=== PATIENT | male | born 1955 | race African-American/Black ===

== ENCOUNTER 2022-04-02 18:52 | Emergency (ER) | payer MEDICARE ==
[~2022-04-02] VITALS: Ht 180.3 cm; Wt 88.9 kg
[2022-04-02] MEDS ORDERED: OXYCODONE/APAP 5-325 MG TABLET PO ONE (19:30)
[2022-04-02] MEDS ORDERED: OXYCODONE/APAP 5-325 MG TABLET ONE (19:31)
[2022-04-02 19:36] LABS: HEMATOCRIT 28.3 % (36.7-47.1); MEAN CORPUSCULAR HEMOGLOBIN 28.6 uug (23.8-33.4); PLATELET COUNT (AUTO) 282 K/uL (152-348)
--- NOTE | 2022-04-02 19:40 | NUR ---
PT A/O x 4. NAD noted.
--- NOTE | 2022-04-02 19:45 | NUR ---
Observed PT walk to restroom with a steady gait.
--- NOTE | 2022-04-02 19:52 | NUR ---
Urine sample sent to the lab.
[2022-04-02 20:08] LABS: BILIRUBIN,DIRECT 0.1 mg/dL (0.0-0.2); BILIRUBIN,TOTAL 0.4 mg/dL (0.2-1.0); CREATININE 1.3 mg/dL (0.6-1.3); POTASSIUM 4.3 mmol/L (3.5-5.1); TOTAL PROTEIN, SERUM 8.5 g/dL (6.4-8.2)
[2022-04-02 20:22] LABS: *BILIRUBIN,URIN NEGATIVE (NEGATIVE); *BLOOD, URINE NEGATIVE (NEGATIVE); *CLARITY,URINE CLEAR (CLEAR); *COLOR,URINE YELLOW (YELLOW); *KETONES,URINE NEGATIVE (NEGATIVE); *UROBILINOGEN,URINE 0.2 E.U./dl (NORMAL); LEUKOCYTE ESTERASE ,URINE NEGATIVE (NEGATIVE); NITRITE, URINE NEGATIVE (NEGATIVE); PH,URINE 5.5 (5.0-8.0)
[2022-04-02 20:30] LABS: UGLUCOSE 3+ (NEGATIVE)
--- NOTE | 2022-04-02 20:30 | NUR ---
Daughter at bedside.
[2022-04-02] MEDS ORDERED: SWABABLE VALVE TRANSFER SET EA MC ONE (20:31)
[2022-04-02] MEDS ORDERED: IV NORMAL SALINE 250 ML IV ONE (20:31)
[2022-04-02] MEDS ORDERED: IOHEXOL 300MG/ML 100 ML INFUS..BTL ONE (20:31)
[2022-04-02 21:04] LABS: BACTERIA,URINE FEW /HPF (NONE SEEN); RBC,URINE 0-3 /HPF (0-3); SQUAMOUS EPITHELIAL CELL,UR FEW /HPF (NONE SEEN); WBC,URINE 0-3 /HPF (0-3)
[2022-04-02 21:05] LABS: MAGNESIUM 2.1 mg/dL (1.8-2.4)
[2022-04-02] MEDS ORDERED: BLOO-1731 MC (22:36)
[2022-04-02] MEDS ORDERED: BISA10SU61 RC (22:36)
[2022-04-02] MEDS ORDERED: BISA-79 PO (22:36)
--- NOTE | 2022-04-02 22:45 | NUR ---
Patient discharged to home in stable condition. A/O x 4. NAD noted. Ambulatory with a steady gait. Written and verbal after care instructions given. Patient verbalizes understanding of instructions. Stressed follow up or return to ER for worsening s/s.
[2022-04-02 22:48] VITALS: BP 128/69
== END 2022-04-02 22:45 | disposition home or self-care (01) ==
LOC: ER 20:07
DX: K59.00 Constipation, unspecified (principal); E11.9 Type 2 diabetes mellitus without complications; D50.9 Iron deficiency anemia, unspecified; C61 Malignant neoplasm of prostate; C79.9 Secondary malignant neoplasm of unspecified site; Z92.3 Personal history of irradiation
CPT/HCPCS: 99285; 74177; 80076; 80048; 81001; 83550; 83735; 85025; 85044; 36415; Q9967; 70030-TC; A4663

== ENCOUNTER 2022-12-11 23:15 | Emergency (ER) | payer MEDICARE ==
[~2022-12-11] VITALS: Ht 180.3 cm; Wt 88.5 kg
[~2022-12-11 23:15] MED LIST: BISA-79 PO; BISA10SU61 RC; BLOO-1731 MC
[2022-12-11] MEDS ORDERED: LIDOCAINE HCL 1% 20 ML VIAL ONE (23:38)
[2022-12-11] MEDS ORDERED: LIDOCAINE HCL 1% 20 ML VIAL TP ONE (23:45)
[2022-12-12 00:32] VITALS: BP 139/74; TEMP 98.5; O2SAT 99
== END 2022-12-12 00:32 | disposition home or self-care (01) ==
LOC: ER 23:18
DX: S01.81XA Laceration without foreign body of other part of head, initial encounter (principal); Z79.899 Other long term (current) drug therapy; W26.8XXA Contact with other sharp object(s), not elsewhere classified, initial encounter; Y93.89 Activity, other specified; Y92.89 Other specified places as the place of occurrence of the external cause; Y99.8 Other external cause status
CPT/HCPCS: 12013; 99282; J3490; A4663